=== PATIENT | male | born 1970 | race Caucasian/White ===

== ENCOUNTER 2016-10-28 20:07 | Inpatient (IN) | payer OTHER ==
[~2016-10-28] VITALS: Ht 185.4 cm; Wt 108.9 kg
[~2016-10-28 20:07] MED LIST: /PANT40TA PO; COLCPOW6 PO; EFFEXOR PO; HYDR-3363 PO; LEVA31IN INH; LEVO500T PO; LISI20TA PO; LISI5TAB PO; MAG400TA PO; NICO21DI26 TD; NORCOTAB PO; PERCOCET PO; PRAZ2CAP PO; PROZ10CA7 PO; PROZAC PO; TEMA30CA PO; VANC5INJ5 PO; VENL50TA2 PO; VENL75CA PO; ZYPR5TAB2 PO; nicotine gum PO
[2016-10-28] MEDS ORDERED: PROZ20CA11 PO (20:48)
[2016-10-28 21:27] LABS: MEAN CORPUSCULAR HEMOGLOBIN 31.3 pg (27.0-33.0); MEAN CORPUSCULAR HGB CONC 33.9 g/dl (32.0-36.5); MEAN CORPUSCULAR VOLUME 92.3 fl (80.0-96.0); RED CELL DISTRIBUTION WIDTH 13.3 % (11.5-14.5); WHITE BLOOD COUNT 7.1 K/mm3 (4.0-10.0)
[2016-10-28] MEDS ORDERED: LORazepam 2 MG TAB PO STA (21:34)
[2016-10-28 21:46] LABS: METHADONE URINE NEGATIVE (NEGATIVE)
[2016-10-28 21:55] LABS: ALBUMIN 3.6 GM/DL (3.2-5.2); ALKALINE PHOSPHATASE 107 U/L (45-117); ALT/SGPT 63 U/L (12-78); ANION GAP 10 MEQ/L (8-16); AST/SGOT 69 U/L (15-37); BILIRUBIN,DIRECT < 0.1 MG/DL (0.0-0.2); BILIRUBIN,TOTAL 0.3 MG/DL (0.2-1.0); BLOOD UREA NITROGEN 8 MG/DL (7-18); CALCIUM LEVEL 8.4 MG/DL (8.5-10.1); CARBON DIOXIDE LEVEL 28 MEQ/L (21-32); CHLORIDE LEVEL 99 MEQ/L (98-107); CREATININE FOR GFR 0.63 MG/DL (0.70-1.30); GLOMERULAR FILTRATION RATE > 60.0 (>60); GLUCOSE, FASTING 104 MG/DL (70-105); POTASSIUM SERUM 3.7 MEQ/L (3.5-5.1); SODIUM LEVEL 137 MEQ/L (136-145); TOTAL PROTEIN 7.6 GM/DL (6.4-8.2)
[2016-10-29] VITALS (7 sets, daily range): BP systolic 132–180; BP diastolic 80–110
[2016-10-29] MEDS ORDERED: LORazepam 2 MG TAB PO ONE (02:00)
[2016-10-29] MEDS ORDERED: LISINOPRIL 10 MG TAB PO ONE (11:30)
[2016-10-29] MEDS ORDERED: LISINOPRIL 20 MG TAB PO ONE (11:30)
[2016-10-29] MEDS ORDERED: MOM 30ML SUSPENSION UDC PO PRN (12:30)
[2016-10-29] MEDS ORDERED: MAALOX 30 ML SUSP *UDC PO PRN (12:30)
[2016-10-29] MEDS: LORazepam 2 MG TAB PO PRN ×2 (12:36→19:48)
[2016-10-29] MEDS: MULTIVITAMINS/MINERALS THERAP 1 TAB PO SCH (12:55)
[2016-10-29] MEDS: FOLIC ACID 1 MG TAB PO SCH (12:55)
[2016-10-29] MEDS: NICOTINE 21MG/24HR 1 EA TRANSDERMAL TD SCH (12:55)
[2016-10-29] MEDS: THIAMINE 100 MG TAB PO SCH ×2 (12:55→19:48)
[2016-10-29] MEDS: traZODone 50 MG TAB PO PRN (20:54)
[2016-10-30] MEDS: ACETAMINOPHEN TAB 650MG DOSE (2X325MG) PO PRN ×3 (05:30→20:36)
[2016-10-30 06:37] VITALS: BP 139/83
[2016-10-30 08:21] VITALS: BP 125/76
[2016-10-30] MEDS: NICOTINE 21MG/24HR 1 EA TRANSDERMAL TD SCH (08:37)
[2016-10-30] MEDS: FOLIC ACID 1 MG TAB PO SCH (08:37)
[2016-10-30] MEDS: LORazepam 2 MG TAB PO PRN (08:37)
[2016-10-30] MEDS: THIAMINE 100 MG TAB PO SCH ×2 (08:37→20:30)
[2016-10-30] MEDS: MULTIVITAMINS/MINERALS THERAP 1 TAB PO SCH (08:37)
[2016-10-30] MEDS ORDERED: LISINOPRIL 40 MG TAB PO SCH (09:00)
[2016-10-30 11:50] VITALS: BP 138/85
[2016-10-30] MEDS: FLUoxetine 20 MG CAP PO SCH (14:34)
[2016-10-30 18:00] VITALS: BP 139/91
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
[2016-10-30] MEDS: traZODone 50 MG TAB PO PRN (20:30)
--- NOTE | 2016-10-30 21:29 | HPE ---
DATE OF ADMISSION: 10/29/2016 Please refer to psychiatric history and evaluation for further details on this admission. This examination and history is intended for medical issues, which may need treatment, followup or consult on this 45-year-old male. PRIMARY CARE PROVIDER: He goes to the [facility]. ALLERGIES: No known allergies. SOCIAL HISTORY: He is . He has three children. He smokes 5-6 cigarettes a day. He drinks three, four, even more times a week beer and liquor. He does not use recreational drugs. He is an [employer] . CURRENT MEDICATIONS: - Prozac 20 mg by mouth three times a day - lisinopril 10 mg by mouth daily PAST MEDICAL HISTORY: 1. Posttraumatic stress disorder (PTSD). 2. Hypertension. 3. Anxiety. 4. Gout. 5. History of Leishmaniasis while in [place]. 6. Ventral hernia repair 04/19/2013. 7. History of colon resection. 8. History of chest tube placement for pneumothorax after fall off a roof while intoxicated. 9. Traumatic brain injury (TBI) with chronic headaches. 10. Tinnitus. 11. Chronic back pain. 12. Hypercholesterolemia. LABORATORY DATA: CBC normal. Electrolytes normal. BUN 8, creatinine 0.63, calcium 8.4, AST slightly elevated at 69, ALT normal at 63. EtOH was 0.200. EKG on file 10/16/2013. SYSTEM REVIEW: Unremarkable. He had no current complaints or medical issues. OBJECTIVE: A 45-year-old cooperative male in no acute distress. Height 73 inches, weight 107.2 kg, body mass index (BMI) 31.2. VITAL SIGNS: Blood pressure 136/83, pulse 80, respirations 16, temperature 98.6. GENERAL: The patient is alert and oriented times three. HEENT: Pupils equal and reactive to light. Extraocular muscles (EOMs) are intact. Sclerae clear. Conjunctivae normal. No facial asymmetry. Pharynx, tongue and gums pink and moist. Tongue is midline. NECK: Supple without lymphadenopathy. No thyromegaly and no goiter. CHEST: Clear to auscultation. No wheeze or retractions. HEART: Regular. ABDOMEN: Benign. Bowel sounds positive. GENITOURINARY/RECTAL: Not done. EXTREMITIES: Equal strength, full range of motion. No cyanosis, clubbing or edema. Peripheral pulses equal and palpable bilaterally. SKIN: Warm and dry. IMPRESSION AND PLAN: 1. Psychiatric plan per psychiatry. 2. Monitor for withdrawal. Electrocardiogram (EKG) on file. 3. Nicotine dependent. Has a patch. 4. Hypercholesterolemia, currently on no medications. We will get a fasting lipid and [facility]. 5. Hypertension. Will continue him on his lisinopril. 6. History of gout, currently stable. [facility] for [facility] of care of medical issues.
[2016-10-31 06:49] VITALS: BP 108/65
[2016-10-31 07:50] LABS: ALBUMIN 3.2 GM/DL (3.2-5.2); ALBUMIN/GLOBULIN RATIO 0.94 (1.00-1.93); ALKALINE PHOSPHATASE 81 U/L (45-117); ALT/SGPT 51 U/L (12-78); AST/SGOT 53 U/L (15-37); BILIRUBIN,DIRECT 0.1 MG/DL (0.0-0.2); BILIRUBIN,TOTAL 0.5 MG/DL (0.2-1.0); CHOLESTEROL LEVEL 253 MG/DL (<200); TOTAL PROTEIN 6.6 GM/DL (6.4-8.2); TRIGLYCERIDES LEVEL 1151 MG/DL (<150)
[2016-10-31] MEDS: NICOTINE 21MG/24HR 1 EA TRANSDERMAL TD SCH ×3 (09:00→14:53)
[2016-10-31] MEDS: THIAMINE 100 MG TAB PO SCH ×2 (09:38→21:26)
[2016-10-31] MEDS: LISINOPRIL 10 MG TAB PO SCH (09:38)
[2016-10-31] MEDS: MULTIVITAMINS/MINERALS THERAP 1 TAB PO SCH (09:38)
[2016-10-31] MEDS: FLUoxetine 20 MG CAP PO SCH (09:38)
[2016-10-31] MEDS: FOLIC ACID 1 MG TAB PO SCH (09:38)
[2016-10-31] MEDS: ACETAMINOPHEN TAB 650MG DOSE (2X325MG) PO PRN ×3 (09:57→21:27)
[2016-10-31 11:37] VITALS: BP 108/65
[2016-10-31 12:02] VITALS: BP 138/88
--- NOTE | 2016-10-31 13:08 | IPN ---
DATE: 10/31/2016 SUBJECTIVE: This is the third day of inpatient hospitalization for this 45-year-old man with admitting diagnosis of unspecified depressive disorder and severe alcohol use disorder. He is presently on fluoxetine 40 mg orally daily and is provided with group and activity therapies. He is seen and progress reviewed. Reports having slept well through the night; however, he still complains of being depressed and quite upset about his various life stressors. He reiterates his commitment to seeing inpatient alcohol treatment program. He was seen earlier this morning by the c4 planner to discuss placement opportunities, including those with the [place]'s Administration affiliations. OBSERVATION: Vital signs: Blood pressure 108/65, pulse 62, respirations 16, temperature 97.1. He is calm, cooperative and well groomed. No notable alcohol withdrawal features evident. His mood is still depressed, although less so than that noted on admission. He does not appear to be responding to internal stimuli. No medication related untoward effects and he denies suicidal or homicidal thoughts, plan or intent. ASSESSMENT: The patient is adjusting well to current setting and is responding slowly to the current treatment; however, further inpatient stay is required for proper medication adjustment and symptom improvements. PLAN: He will be continued on the present treatment, with ongoing reviews and supportive therapy. PAULIE
[2016-10-31 18:00] VITALS: BP 119/71
[2016-10-31] MEDS: traZODone 50 MG TAB PO PRN (21:26)
[2016-11-01 06:11] VITALS: BP 127/75
[2016-11-01] MEDS: NICOTINE 21MG/24HR 1 EA TRANSDERMAL TD SCH (08:53)
[2016-11-01] MEDS: FOLIC ACID 1 MG TAB PO SCH (08:54)
[2016-11-01] MEDS: LISINOPRIL 10 MG TAB PO SCH (08:54)
[2016-11-01] MEDS: FLUoxetine 20 MG CAP PO SCH (08:54)
[2016-11-01] MEDS: MULTIVITAMINS/MINERALS THERAP 1 TAB PO SCH (08:54)
[2016-11-01] MEDS: ACETAMINOPHEN TAB 650MG DOSE (2X325MG) PO PRN ×2 (08:56→15:47)
[2016-11-01 11:22] VITALS: BP 127/75
[2016-11-01 12:00] VITALS: BP 133/77
--- NOTE | 2016-11-01 12:28 | IPNPDOC ---
Subjective Date Seen The patient was seen on 11/01/16. Subjective Chief Complaint/HPI The patient is a 45-year-old male admitted with a reason for visit of Depression. Events since last encounter Following up with Pt regarding his labs. He states he will not consider any medications for his lipids. He is aware of his Trig levels and will not take any type of medication for that. He states he is agitated right now and just took his medication. Objective Physical Examination General Exam: Positive: Alert Eye Exam: Positive: PERRLA Chest Exam: Positive: Clear to auscultation Skin Exam: Positive: Nl turgor and temperature Assessment /Plan Problems (1) Hyperlipidemia Status: Chronic Problem Text: * Pt declines any type of medication for his lipids. * he states he is aware of potential risks, cardiovascular risks. * Reviewed that trig levels that are chronically elevated can cause risk for pancreatitis. * He states he will discuss with his PCP after discharge. (2) HTN (hypertension) Status: Chronic Problem Text: * Lisinopril Plan/VTE VTE Prophylaxis Ordered?: No (ambulatory. ) VS, I&O, 24H, Fishbone Vital Signs/I&O Vital Signs Date Time Temp Pulse Resp B/P Pulse Ox O2 Delivery O2 Flow Rate FiO2 11/01/16 11:22 69 127/75 11/01/16 06:11 98.2 20 Room Air 10/29/16 11:15 95 Ruthie Benedict Nov 01, 2016 12:28
--- NOTE | 2016-11-01 17:39 | IPNPDOC ---
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 NEW TEST RESULTS: See below CURRENT MEDICATIONS: See below. MENTAL STATUS EXAMINATION: General: Well dressed with good hygiene Speech: Spontaneous and fluid Thought processes: Linear and logical Thought content: Future orientated towards going to [place] for substance abuse rehabilitation Abstract reasoning, and computation: Intact Description of associations: Intact Description of abnormal or psychotic thoughts:Denies any suicidal or homicidal ideation. Denies any auditory or visual hallucinations. Does not appear to be responding to internal stimuli. Does not appear to be endorsing any bizarre or paranoid ideation. Judgment: Fair Insight: Fair Orientation: Alert and orientated 3 Recent and remote memory: Intact Attention span and concentration: Intact Fund of knowledge: Adequate Mood: "Okay Affect: Euthymic constricted range DIAGNOSES: 1. Unspecified depressive disorder Rule out substance-induced. 2. Alcohol use disorder, severe, in controlled setting. ASSESSMENT: A 45-year-old man with oppressive symptoms after a long history of alcoholism. His depressive symptoms as of yet or not able to be determined to be due to organic causes such as MDD in the setting of severe alcoholism. He is amenable to going to inpatient rehabilitation and is interested in perhaps being discharged with time to prepare his things. He appears to be improving while on the milner. MANAGEMENT PLAN: Medications: Continue Prozac 40 mg daily added 0.1 mg of clonidine every 6 hours as needed for anxiety with hold parameters for blood pressure Psychotherapy: Encourage group attendance Social: Being considered for inpatient rehabilitation a [place] tomorrow Misc: None Disposition: Will need a longer inpatient stay to address his depressive symptoms and disposition issues in order to ensure successful outpatient treatment TIME SPENT: 20 minutes. Vital Signs Vital Signs Date Time Temp Pulse Resp B/P Pulse Ox O2 Delivery O2 Flow Rate FiO2 11/01/16 12:00 98.9 79 18 133/77 11/01/16 06:11 Room Air 10/29/16 11:15 95 Current Medications Current Medications Acetaminophen (Tylenol Tab) 650 mg Q6HP PRN PO HEADACHE or DISCOMFORT Last administered on 11/01/16 15:47; Start 10/29/16 at 12:30; Stop 11/28/16 at 12:29 Al Hydrox/Mg Hydrox/Simethicone (Mylanta) 30 ml Q4HP PRN PO HEARTBURN/ INDIGESTION; Start 10/29/16 at 12:30; Stop 11/28/16 at 12:29 Fluoxetine HCl (PROzac) 40 mg DAILY PO Last administered on 11/01/16 08:54; Start 10/30/16 at 09:00; Stop 11/29/16 at 08:59 Folic Acid (Folic Acid) 1 mg DAILY PO Last administered on 11/01/16 08:54; Start 10/29/16 at 09:00; Stop 11/28/16 at 08:59 Home Med (Med Rec Complete!) ASDIRECTED XX ; Start 10/29/16 at 12:30; Stop at 12:34; Status DC Lisinopril (Prinivil) 10 mg DAILY PO Last administered on 11/01/16 08:54; Start 10/31/16 at 09:00; Stop 11/30/16 at 08:59 Lisinopril (Prinivil) 40 mg DAILY PO ; Start 10/30/16 at 09:00; Stop 10/30/16 at 09:00; Status DC Lorazepam (Ativan) 2 mg ASDIRECTED PRN PO SEE PROTOCOL Last administered on 10/30 08:37; Start 10/29/16 at 12:30; Stop 11/05/16 at 12:29 Magnesium Hydroxide (Milk Of Magnesia) 30 ml DAILYPRN PRN PO CONSTIPATION; Start 10/29/16 at 12:30; Stop 11/28/16 at 12:29 Multivitamins (Theragram-M) 1 tab DAILY PO Last administered on 11/01/16 08:54 ; Start 10/29/16 at 09:00; Stop 11/28/16 at 08:59 Nicotine (Nicoderm Cq 21mg) 1 patch DAILY TD Last administered on 11/01/16 08: 53; Start 10/29/16 at 09:00; Stop 11/28/16 at 08:59 Thiamine HCl (Thiamine HCl) 100 mg BID PO Last administered on 10/31/16 21:26; Start 10/29/16 at 09:00; Stop 11/01/16 at 08:59; Status DC Trazodone HCl (Desyrel) 50 mg QHSP PRN PO INSOMNIA Last administered on 21:26; Start 10/29/16 at 12:30; Stop 11/28/16 at 12:29 Allergies Coded Allergies: No Known Allergies (Verified Allergy, 05/12/12) GME ATTESTATION My preceptor for this patient encounter was physically present in the building during the encounter and was fully available. As needed, all aspects of the patient interview, examination, medical decision making process, and medical care plan development were reviewed and approved by the preceptor. Preceptor is aware and concurs with the plan as stated in the body of this note and will attest to such by his/her cosignature. GEETHA PAINTER DO Nov 01, 2016 17:39
[2016-11-01 18:00] VITALS: BP 136/80
[2016-11-01] MEDS: cloNIDine 0.1 MG TAB PO PRN (19:04)
[2016-11-01] MEDS: IBUPROFEN 800 MG TAB PO PRN (19:05)
[2016-11-01] MEDS: traZODone 50 MG TAB PO PRN (22:56)
[2016-11-02 06:12] VITALS: BP 122/62
[2016-11-02] MEDS: LISINOPRIL 10 MG TAB PO SCH (09:45)
[2016-11-02] MEDS: NICOTINE 21MG/24HR 1 EA TRANSDERMAL TD SCH (09:45)
[2016-11-02] MEDS: MULTIVITAMINS/MINERALS THERAP 1 TAB PO SCH (09:45)
[2016-11-02] MEDS: FLUoxetine 20 MG CAP PO SCH (09:46)
[2016-11-02] MEDS: FOLIC ACID 1 MG TAB PO SCH (09:46)
[2016-11-02] MEDS: cloNIDine 0.1 MG TAB PO PRN ×2 (09:48→16:16)
[2016-11-02] MEDS: IBUPROFEN 800 MG TAB PO PRN ×2 (09:49→20:40)
[2016-11-02 12:25] VITALS: BP 136/84
--- NOTE | 2016-11-02 17:51 | IPNPDOC ---
[facility] Progress Note Progress Note DATE OF SERVICE: 11/02/16 INTERVAL HISTORY: Medication Side effects: More anxious due to clonidine side effects Behavior: Anxious, cooperative Group Attendance: He is attending groups Psychiatric Symptom change: More anxious VITAL SIGNS: See below. NEW TEST RESULTS: See below CURRENT MEDICATIONS: See below. MENTAL STATUS EXAMINATION: General:[Alert and oriented 3, extremely anxious Speech: Normal,coherent speech Thought processes: Logical, rational Thought content: He doesn't present delusions and doesn't have auditory or visual or somatic hallucinations. He is not responding to internal stimuli. He is redundant and around things such as traumatic experiences in [place], worries about his youngest son, and the being able to get rid of his alcohol addiction. Abstract reasoning, and computation: His abstract thinking is intact Description of associations: He doesn't present any loosening of associations Description of abnormal or psychotic thoughts: He doesn't have psychotic ideation Judgment: Fair Insight: Fair Orientation: Oriented 3 Recent and remote memory: Intact Attention span and concentration: Fair Fund of knowledge: Average Mood: Anxious, irritable Affect: anxious DIAGNOSES: 1. PTSD, chronic .2. Alcohol abuse severe in withdrawal. 3. . ASSESSMENT: Mack needs to take another medication today that is Inderal it will take care of his anxiety symptoms (the somatic complaints of anxiety) and clonidine and has been discontinued because it increased the symptoms of anxiety. MANAGEMENT PLAN: Medications: Clonidine has been discontinued and he has been started on Inderal 10 mg every 6 hours when necessary for anxiety Psychotherapy: Encourage groups Social: Awaiting referral Misc: Nothing Disposition: Needs more time for disposition planning TIME SPENT: 15 minutes. Vital Signs Vital Signs Date Time Temp Pulse Resp B/P Pulse Ox O2 Delivery O2 Flow Rate FiO2 11/02/16 16:16 138/89 11/02/16 12:25 98.0 68 18 11/02/16 08:24 Room Air 10/29/16 11:15 95 Current Medications Current Medications Acetaminophen (Tylenol Tab) 650 mg Q6HP PRN PO HEADACHE or DISCOMFORT Last administered on 11/01/16t 15:47; Start 10/29/16 at 12:30; Stop 11/01/16 at 18:54; Status DC Al Hydrox/Mg Hydrox/Simethicone (Mylanta) 30 ml Q4HP PRN PO HEARTBURN/ INDIGESTION; Start 10/29/16 at 12:30; Stop 11/28/16 at 12:29 Clonidine HCl (Catapres) 0.1 mg Q6HP PRN PO anxiety Last administered on 16:16; Start 11/01/16 at 17:45; Stop 12/01/16 at 17:44 Fluoxetine HCl (PROzac) 40 mg DAILY PO Last administered on 11/02/16 09:46; Start 10/30/16 at 09:00; Stop 11/29/16 at 08:59 Folic Acid (Folic Acid) 1 mg DAILY PO Last administered on 11/02/16 09:46; Start 10/29/16 at 09:00; Stop 11/28/16 at 08:59 Home Med (Med Rec Complete!) ASDIRECTED XX ; Start 10/29/16 at 12:30; Stop at 12:34; Status DC Ibuprofen (Advil) 800 mg Q8HP PRN PO MODERATE PAIN (PS 5-7) Last administered on 11/02/16 09:49; Start 11/01/16 at 19:00; Stop 12/01/16 at 18:59 Lisinopril (Prinivil) 10 mg DAILY PO Last administered on 11/02/16 09:45; Start 10/31/16 at 09:00; Stop 11/30/16 at 08:59 Lisinopril (Prinivil) 40 mg DAILY PO ; Start 10/30/16 at 09:00; Stop 10/30/16 at 09:00; Status DC Lorazepam (Ativan) 2 mg ASDIRECTED PRN PO SEE PROTOCOL Last administered on 10/30 08:37; Start 10/29/16 at 12:30; Stop 11/05/16 at 12:29 Magnesium Hydroxide (Milk Of Magnesia) 30 ml DAILYPRN PRN PO CONSTIPATION; Start 10/29/16 at 12:30; Stop 11/28/16 at 12:29 Multivitamins (Theragram-M) 1 tab DAILY PO Last administered on 11/02/16 09:45 ; Start 10/29/16 at 09:00; Stop 11/28/16 at 08:59 Nicotine (Nicoderm Cq 21mg) 1 patch DAILY TD Last administered on 11/02/16 09: 45; Start 10/29/16 at 09:00; Stop 11/28/16 at 08:59 Thiamine HCl (Thiamine HCl) 100 mg BID PO Last administered on 10/31/16 21:26; Start 10/29/16 at 09:00; Stop 11/01/16 at 08:59; Status DC Trazodone HCl (Desyrel) 50 mg QHSP PRN PO INSOMNIA Last administered on 22:56; Start 10/29/16 at 12:30; Stop 11/28/16 at 12:29 Allergies Coded Allergies: No Known Allergies (Verified Allergy, 05/12/12) JASMINE SOTO MD Nov 02, 2016 17:51
[2016-11-02 18:07] VITALS: BP 132/88
[2016-11-02 20:00] VITALS: BP 138/78
[2016-11-02] MEDS: PROPRANOLOL 10 MG TAB PO PRN (21:08)
[2016-11-02] MEDS: traZODone 50 MG TAB PO PRN (21:11)
[2016-11-03] MEDS: LORazepam 2 MG TAB PO PRN (03:41)
[2016-11-03 03:42] VITALS: BP 140/86
[2016-11-03 06:27] VITALS: BP 143/90
[2016-11-03] MEDS: FLUoxetine 20 MG CAP PO SCH (08:56)
[2016-11-03] MEDS: MULTIVITAMINS/MINERALS THERAP 1 TAB PO SCH (08:56)
[2016-11-03] MEDS: FOLIC ACID 1 MG TAB PO SCH (08:56)
[2016-11-03] MEDS: LISINOPRIL 10 MG TAB PO SCH (08:56)
[2016-11-03] MEDS: NICOTINE 21MG/24HR 1 EA TRANSDERMAL TD SCH (08:57)
--- NOTE | 2016-11-03 12:17 | IPNPDOC ---
Subjective Date Seen The patient was seen on 11/03/16. Subjective Chief Complaint/HPI The patient is a 45-year-old male admitted with a reason for visit of Depression. Events since last encounter Requested to evaluate patient for cough. Patient states he has had a nonproductive cough since he has been attempting to quit smoking. No fevers or chills. No sore throat No rhinorrhea No shortness of breath or chest pain. He states he has had some abdominal pain at the site of a previous hernia repair. He states he has had 3 prior abdominal surgeries and usually wears an abdominal binder at home. The cough is irritating his abdominal discomfort. ENT: Denies: Dysphagia, Ear Pain, Head Aches Skin: Denies: Breakdown, Lesions, Rash Cardiovascular: Denies: Chest Pain, Lt Headedness, Orthopnea, Palpitations, Paroxysmal Noc. Dyspnea Genitourinary: Denies: Dysuria, Frequency, Incontinence, Retention Objective Physical Examination General Exam: Positive: Alert Eye Exam: Positive: PERRLA Chest Exam: Positive: Clear to auscultation Abdomen Exam: Positive: Normal bowel sounds Skin Exam: Positive: Nl turgor and temperature Assessment /Plan Problems (1) Hyperlipidemia Status: Chronic Problem Text: * Pt declines any type of medication for his lipids. * he states he is aware of potential risks, cardiovascular risks. * Reviewed that trig levels that are chronically elevated can cause risk for pancreatitis. * He states he will discuss with his PCP after discharge. (2) HTN (hypertension) Status: Chronic Problem Text: * Lisinopril (3) Cough Status: Acute Problem Text: * Patient may use Robitussin as needed * Patient may use abdominal binder from home if okay with attending (4) Tobacco use Status: Chronic Problem Text: * Continue Nicoderm patch Plan/VTE VTE Prophylaxis Ordered?: No (ambulatory. ) VS, I&O, 24H, Fishbone Vital Signs/I&O Vital Signs Date Time Temp Pulse Resp B/P Pulse Ox O2 Delivery O2 Flow Rate FiO2 11/03/16 08:56 143/90 11/03/16 06:27 99.2 54 18 11/02/16 08:24 Room Air 10/29/16 11:15 95 Ruthie Benedict Nov 03, 2016 12:16
[2016-11-03] MEDS ORDERED: guaiFENesin SYRUP 200 MG/10 ML UDC PO PRN (12:30)
[2016-11-03] MEDS: IBUPROFEN 800 MG TAB PO PRN (14:23)
[2016-11-03 18:00] VITALS: BP 126/78
--- NOTE | 2016-11-03 18:16 | IPNPDOC ---
[facility] Progress Note Progress Note DATE OF SERVICE: 11/03/16 INTERVAL HISTORY: Medication Side effects: Reports the anxiety from the clonidine has gone away. He describes he had no side effects from the Prozac in terms of GI side effects or restlessness today. Behavior: Generally amenable and has been social in the milieu Group Attendance: Has been attending groups relatively regularly Psychiatric Symptom change: Reports no depression or anxiety today feels that his symptoms are better under control. He describes his sleep was somewhat difficult last night but that he feels that was due to his tramadol. He describes he is currently not craving any alcohol. Which is unusual for him. VITAL SIGNS: See below. NEW TEST RESULTS: See below CURRENT MEDICATIONS: See below. MENTAL STATUS EXAMINATION: General: Well dressed with good hygiene Speech: Spontaneous and fluid Thought processes: Linear and logical Thought content: Future orientated him positively enthusiastic about his rehabilitation Abstract reasoning, and computation: Intact Description of associations: Intact Description of abnormal or psychotic thoughts: Makes no threats towards himself or others. Does not appear to be responding to internal stimuli Judgment: Fair Insight: Poor Orientation: Alert and orientated 3 Recent and remote memory: Intact Attention span and concentration: Intact Fund of knowledge: Adequate Mood: "Great" Affect: Euthymic with a full range DIAGNOSES: 1. Unspecified depressive disorder Rule out substance-induced. 2. Alcohol use disorder, severe, in controlled setting. ASSESSMENT: Stable pending discharge tomorrow MANAGEMENT PLAN: Medications: Continue Prozac 40 mg daily and Inderal 10 mg every 6 when necessary anxiety with hold parameters he is not use the Inderal as of yet encouraged him to do so Psychotherapy: Encouraged groups Social: Plan to discharge home tomorrow and for him to attend rehabilitation on Monday. His 18-year-old son will be living with him over the weekend in order to help encourage sobriety. Misc: None Disposition: The patient will need of further inpatient stay to address disposition needs. TIME SPENT: 15 minutes. Vital Signs Vital Signs Date Time Temp Pulse Resp B/P Pulse Ox O2 Delivery O2 Flow Rate FiO2 11/03/16 08:56 143/90 11/03/16 06:27 99.2 54 18 11/02/16 08:24 Room Air 10/29/16 11:15 95 Current Medications Current Medications Acetaminophen (Tylenol Tab) 650 mg Q6HP PRN PO HEADACHE or DISCOMFORT Last administered on 11/01/16 15:47; Start 10/29/16 at 12:30; Stop 11/01/16 at 18:54; Status DC Al Hydrox/Mg Hydrox/Simethicone (Mylanta) 30 ml Q4HP PRN PO HEARTBURN/ INDIGESTION; Start 10/29/16 at 12:30; Stop 11/28/16 at 12:29 Clonidine HCl (Catapres) 0.1 mg Q6HP PRN PO anxiety Last administered on 16:16; Start 11/01/16 at 17:45; Stop 11/02/16 at 17:40; Status DC Fluoxetine HCl (PROzac) 40 mg DAILY PO Last administered on 11/03/16 08:56; Start 10/30/16 at 09:00; Stop 11/29/16 at 08:59 Folic Acid (Folic Acid) 1 mg DAILY PO Last administered on 11/03/16 08:56; Start 10/29/16 at 09:00; Stop 11/28/16 at 08:59 Guaifenesin (Robitussin) 5 ml QIDP PRN PO COUGH; Start 11/03/16 at 12:30; Stop 12/03/16 at 12:29 Home Med (Med Rec Complete!) ASDIRECTED XX ; Start 10/29/16 at 12:30; Stop at 12:34; Status DC Ibuprofen (Advil) 800 mg Q8HP PRN PO MODERATE PAIN (PS 5-7) Last administered on 11/03/16 14:23; Start 11/01/16 at 19:00; Stop 12/01/16 at 18:59 Lisinopril (Prinivil) 10 mg DAILY PO Last administered on 11/03/16 08:56; Start 10/31/16 at 09:00; Stop 11/30/16 at 08:59 Lisinopril (Prinivil) 40 mg DAILY PO ; Start 10/30/16 at 09:00; Stop 10/30/16 at 09:00; Status DC Lorazepam (Ativan) 2 mg ASDIRECTED PRN PO SEE PROTOCOL Last administered on 11/03 03:41; Start 10/29/16 at 12:30; Stop 11/05/16 at 12:29 Magnesium Hydroxide (Milk Of Magnesia) 30 ml DAILYPRN PRN PO CONSTIPATION; Start 10/29/16 at 12:30; Stop 11/28/16 at 12:29 Multivitamins (Theragram-M) 1 tab DAILY PO Last administered on 11/03/16 08:56 ; Start 10/29/16 at 09:00; Stop 11/28/16 at 08:59 Nicotine (Nicoderm Cq 21mg) 1 patch DAILY TD Last administered on 11/03/16 08: 57; Start 10/29/16 at 09:00; Stop 11/28/16 at 08:59 Propranolol HCl (Inderal) 10 mg Q6H PRN PO Anxiety Last administered on 21:08; Start 11/02/16 at 17:45; Stop 12/02/16 at 17:44 Thiamine HCl (Thiamine HCl) 100 mg BID PO Last administered on 10/31/16 21:26; Start 10/29/16 at 09:00; Stop 11/01/16 at 08:59; Status DC Trazodone HCl (Desyrel) 50 mg QHSP PRN PO INSOMNIA Last administered on 21:11; Start 10/29/16 at 12:30; Stop 11/28/16 at 12:29 Allergies Coded Allergies: No Known Allergies (Verified Allergy, 05/12/12) GME ATTESTATION My preceptor for this patient encounter was physically present in the building during the encounter and was fully available. As needed, all aspects of the patient interview, examination, medical decision making process, and medical care plan development were reviewed and approved by the preceptor. Preceptor is aware and concurs with the plan as stated in the body of this note and will attest to such by his/her cosignature. GEETHA PAINTER DO Nov 03, 2016 18:16
[2016-11-03] MEDS: PROPRANOLOL 10 MG TAB PO PRN ×2 (19:02→21:16)
[2016-11-03] MEDS: traZODone 50 MG TAB PO PRN (21:16)
[2016-11-04 06:19] VITALS: BP 132/68
[2016-11-04] MEDS: MULTIVITAMINS/MINERALS THERAP 1 TAB PO SCH (09:23)
[2016-11-04] MEDS: NICOTINE 21MG/24HR 1 EA TRANSDERMAL TD SCH (09:23)
[2016-11-04] MEDS: FLUoxetine 20 MG CAP PO SCH (09:23)
[2016-11-04] MEDS: FOLIC ACID 1 MG TAB PO SCH (09:24)
[2016-11-04] MEDS: LISINOPRIL 10 MG TAB PO SCH (09:24)
[2016-11-04 09:26] VITALS: BP 126/73
[2016-11-04] MEDS: PROPRANOLOL 10 MG TAB PO PRN (09:26)
[2016-11-04] MEDS ORDERED: FLUO20CA9 PO (10:15)
[2016-11-04] MEDS ORDERED: NICO21PAT TD (11:38)
[2016-11-04] MEDS ORDERED: PRIN10TA PO (11:55)
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
== END 2016-11-04 12:30 | disposition home or self-care (01) | DRG 882 ==
LOC: M ED 21:08 → M ED INP 10-29 10:49 → M PSY 10-29 11:45
PROVIDERS: ADMIT Psychiatry & Neurology Psychiatry; ATTEND Psychiatry & Neurology Psychiatry
DX: F43.10 Post-traumatic stress disorder, unspecified (principal); F10.10 Alcohol abuse, uncomplicated; F17.210 Nicotine dependence, cigarettes, uncomplicated; Z79.899 Other long term (current) drug therapy; I10 Essential (primary) hypertension; M10.9 Gout, unspecified; E78.00 Pure hypercholesterolemia, unspecified; R05 Cough